=== PATIENT | female | born 1995 | race Caucasian/White ===

== ENCOUNTER 2020-05-13 12:29 | Emergency (ER) | payer MEDICAID, OTHER ==
[2020-05-13 12:43] VITALS: BP 139/89; PULSE 77
--- NOTE | 2020-05-13 13:27 | EDM.PDOC ---
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 She states this started about 2 hours ago after moving a bunch of office furniture. She states that she did not have any discomfort while moving the furniture but when she finished and sat down in a chair she developed back pain in the T6-T8 region. The pain radiates laterally on both sides of her body. She states that it is an achy type of pain. She denies any fever, chills, nausea, vomiting, or cough. Pain is slightly worse when taking a deep breath. She has not taken any over the counter pain medications or tried ice or heat. Patient states she has been to the chiropractor recently as her hips were out of place and she just feels like she needs to be adjusted. 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 She denies any issues with bowel or bladder. And neuro exam is unremarkable. Of note patient is 9 weeks and her OB doctor is in [place]. Onset: Today, Sudden Treatments INTERIOR SYSTEMS CARPENTER: Reports: Other (see below) Other Treatments INTERIOR SYSTEMS CARPENTER: none Middle Back Pain Score (Numeric/FACES): 9 - Related Data Allergies Allergy/AdvReac Type Severity Reaction Status Date / Time dicyclomine HCl [From Bentyl] Allergy Hallucinati Verified 08/15/15 13:43 ons Home Meds: Home Meds Metoclopramide HCl [Reglan] 10 mg PO Q6H PRN 05/13/20 [History] Pantoprazole Sodium [Protonix] 40 mg PO DAILY 05/13/20 [History] Pnv No.95/Ferrous Fum/Folic AC [ Caplet] 1 tab PO DAILY 05/13/20 [History] Past Medical History Gastrointestinal History: Reports: Irritable Bowel Syndrome Psychiatric History: Reports: Anxiety, Depression - Past Surgical History GI Surgical History: Reports: Colonoscopy Social & Family History - Tobacco Use Tobacco Use Status *Q: Never Tobacco User - Caffeine Use Caffeine Use: Reports: None - Recreational Drug Use Recreational Drug Use: No - Living Situation & Occupation Living situation: Reports: Single, with Family Occupation: Employed ED ROS GENERAL - Review of Systems Review Of Systems: Comprehensive ROS is negative, except as noted in HPI. ED EXAM, UPPER BACK/NECK PAIN - Physical Exam Exam: See Below Exam Limited By: No Limitations General Appearance: Alert, WD/WN, No Apparent Distress Ears Exam: Normal External Exam, Hearing Grossly Normal Nose Exam: Normal Inspection, Normal Mucousa Throat/Mouth Exam: Normal Inspection, Normal Voice, No Airway Compromise Head Exam: Atraumatic, Normocephalic Neck Exam: Non-Tender, Full Range of Motion, Normal Alignment, Normal Inspection GI/Abdominal: Normal Bowel Sounds, Soft, Non-Tender (Female) Exam: Deferred Rectal (Female) Exam: Deferred Back Exam: Normal Inspection, Full Range of Motion, Paraspinal Tenderness. No: Vertebral Tenderness Extremities: Normal Inspection, Normal Range of Motion, Non-Tender, No Pedal Edema, Normal Capillary Refill Neurologic: No Motor/Sensory Deficits, Alert, Normal Mood/Affect, Oriented x 3 Psychiatric: Normal Affect, Normal Mood Skin Exam: Normal Color, Warm/Dry Lymphatic: No Adenopathy Course - Vital Signs Text/Narrative:: 25-year-old female presenting the emergency department with complaints of upper back pain that started after moving office furniture. Upon assessment patient does not have any spinal tenderness but does have paraspinal tenderness noted in the T6-T8 area. She denies any recent cough, fever, or chills. She denies any difficulty with bowel or bladder. Denies numbness and tingling to upper and lower extremities and has equal strength in all extremities. Has not taken any [id number] pain medications prior to arrival or tried using ice or heat for therapy. I do not want to do an x-ray on this patient as she is 9 weeks pr egnant. She will be discharged to home with recommendations she take Tylenol 650 mg every 4 hours as needed for the discomfort and use ice/heat for comfort. May also try chiropractor massage therapy. Last Recorded V/S: Last Vital Signs Temp 99.1 F 05/13/20 12:41 Pulse 77 05/13/20 12:41 Resp 20 05/13/20 12:41 BP 139/89 05/13/20 12:41 Pulse Ox 100 05/13/20 12:41 Departure - Departure Time of Disposition: 13:31 Disposition: Home, Self-Care 01 Condition: Good Clinical Impression: Muscle strain - Discharge Information Instructions: Muscle Strain, [id number] Referrals: Karime Hudson MD [Primary Care Provider] - Forms: ED Department Discharge Additional Instructions: You were seen in the emergency department today with complaints of pain to your mid back after moving office furniture. It is likely that you have muscle strain noted to your upper back as you do not have any numbness or tingling, you have equal strength to upper and lower extremities, and you have no issues with your bowel or bladder. No x-ray was performed due to the fact that you are 9 weeks . Recommend you go home and rest, take Tylenol 650 mg every 4 hours as needed for discomfort, use ice/heat for comfort and follow-up with massage therapy or health care aide. Should you notice numbness or tingling to your upper extremities or difficulty with your bowel or bladder do not hesitate to return to the emergency department. Sepsis Event Note (ED) - Evaluation Sepsis Screening Result: No Definite Risk - Focused Exam Vital Signs: Vital Signs Temp Pulse Resp BP Pulse Ox 05/13/20 12:41 99.1 F 77 20 139/89 100
== END 2020-05-13 13:20 | disposition home or self-care (01) ==
LOC: JD.ED 12:29
DX: O99.891 Other specified diseases and conditions complicating pregnancy (principal); S29.012A Strain of muscle and tendon of back wall of thorax, initial encounter; Z88.8 Allergy status to other drugs, medicaments and biological substances; Z79.899 Other long term (current) drug therapy; Z3A.09 9 weeks gestation of pregnancy; X50.9XXA Other and unspecified overexertion or strenuous movements or postures, initial encounter
CPT/HCPCS: 99282; 99283

== ENCOUNTER 2021-03-26 12:23 | Emergency (ER) | payer OTHER ==
[2021-03-26 12:37] VITALS: BP 131/58; PULSE 123
[2021-03-26] MEDS ORDERED: Sodium Chloride 0.9% 10 ML Syringe FLUSH PRN (13:13)
[2021-03-26] MEDS ORDERED: Ondansetron 4 MG/2 ML SDV IVPUSH ONE (13:13)
[2021-03-26] MEDS ORDERED: Sodium Chloride 0.9% 1,000 ML IV SCH (13:15)
[2021-03-26 13:32] LABS: CORONAVIRUS COVID-19 NAA NEGATIVE (NEGATIVE)
--- NOTE | 2021-03-26 13:44 | EDM.PDOC ---
ED HPI GENERAL MEDICAL PROBLEM - General Chief Complaint: Respiratory Problem Stated Complaint: VOMITING FEVER Time Seen by Provider: 03/26/21 13:20 - History of Present Illness INITIAL COMMENTS - FREE TEXT/NARRATIVE: 25-year-old female presents the emergency room with flulike symptoms. Sunday she just started feeling rough diffuse aches and pains and joint pain and not being herself. This morning is got worse with nausea vomiting. She has vomited half a dozen times now just bringing up bilious material. The nausea and vomiting started this morning. She does not seem to have any significant abdominal pain associated with this. Patient is treated for bipolar depression but is not have any problems with that at this time. Past medical history is otherwise unremarkable. 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 Denies: Fever, Night Sweats, Diaphoresis HEENT: Reports: Rhinitis Respiratory: Denies: Shortness of Breath, Cough, Sputum Cardiovascular: Reports: No Symptoms GI/Abdominal: Reports: Nausea, Vomiting. Denies: Abdominal Pain, Constipation, Diarrhea : Reports: No Symptoms Musculoskeletal: Reports: Other (Muscle and joints that are achy) Skin: Reports: No Symptoms Neurological: Reports: No Symptoms Psychiatric: Reports: No Symptoms ED EXAM, GENERAL - Physical Exam Exam: See Below Exam Limited By: No Limitations General Appearance: Alert, No Apparent Distress Eye Exam: Bilateral Eye: Normal Inspection Ears: Normal External Exam, Normal Canal, Other (Tympanic membrane on the right left tympanic membrane is bulging and erythematous) Nose: Normal Inspection, Normal Mucosa, No Blood, Other (Sinus percussion is nonsuggestive of an acute sinusitis) Throat/Mouth: Normal Inspection, Normal Lips, Normal Teeth, Normal Gums, Normal Oropharynx, Normal Voice, No Airway Compromise Head: Atraumatic, Normocephalic Neck: Normal Inspection, Supple, Non-Tender, Full Range of Motion. No: Lymphadenopathy (L), Lymphadenopathy (R) Respiratory/Chest: No Respiratory Distress, Lungs Clear, Normal Breath Sounds Cardiovascular: Regular Rate, Rhythm, No Edema, No Murmur GI/Abdominal: Normal Bowel Sounds, Soft, Non-Tender Course - Vital Signs Last Recorded V/S: Last Vital Signs Temp 36.9 C 03/26/21 12:37 Pulse 123 H 03/26/21 12:37 Resp 20 03/26/21 12:37 BP 131/58 L 03/26/21 12:37 Pulse Ox 99 03/26/21 12:37 - Orders/Labs/Meds Orders: Active Orders 24 hr Category Date Time Status Communication Order [RC] ASDIRECTED Care 03/26/21 13:14 Active Communication Order [RC] ASDIRECTED Care 03/26/21 13:14 Active Communication Order [RC] ASDIRECTED Care 03/26/21 13:14 Active Orthostatic Vital Signs [RC] ASDIRECTED Care 03/26/21 13:14 Active Peripheral IV Care [RC] . DIRECTED Care 03/26/21 13:14 Active Chest 1V Frontal [CR] Stat Exams 03/26/21 14:43 Taken CULTURE URINE [MREF] Stat Lab 03/26/21 12:40 Received Sodium Chloride 0.9% [Saline Flush] Med 03/26/21 13:13 Active 10 ml FLUSH ASDIRECTED PRN Peripheral IV Insertion Adult [OM.PC] Stat Oth 03/26/21 13:14 Ordered Medication Orders Sodium Chloride (Sodium Chloride 0.9% 10 Ml Syringe) 10 ml FLUSH ASDIRECTED PRN PRN Reason: Keep Vein Open Last Admin: 03/26/21 13:21 Dose: 10 ml Documented by: JOSE Labs: Laboratory Tests 03/26/21 03/26/21 03/26/21 Range/Units 12:40 12:42 12:42 WBC 12.45 H (3.98-10.04) K/mm3 RBC 5.37 H (3.98-5.22) M/mm3 Hgb 12.9 (11.2-15.7) gm/dl Hct 40.3 (34.1-44.9) % MCV 75.0 L D (79.4-94.8) fl MCH 24.0 L (25.6-32.2) pg MCHC 32.0 L (32.2-35.5) g/dl RDW Std Deviation 44.1 (36.4-46.3) fL Plt Count 342 (182-369) K/mm3 MPV 10.9 (9.4-12.3) fl Neut % (Auto) 87.1 H (34.0-71.1) % Lymph % (Auto) 6.8 L (19.3-51.7) % [place] % (Auto) 4.7 (4.7-12.5) % Eos % (Auto) 1.0 (0.7-5.8) Baso % (Auto) 0.2 (0.1-1.2) % Neut # (Auto) 10.85 H (1.56-6.13) K/mm3 Lymph # (Auto) 0.85 L (1.18-3.74) K/mm3 [place] # (Auto) 0.58 H (0.24-0.36) K/mm3 Eos # (Auto) 0.13 (0.04-0.36) K/mm3 Baso # (Auto) 0.02 (0.01-0.08) K/mm3 Sodium 134 L (136-145) mEq/L Potassium 3.4 L (3.5-5.1) mEq/L Chloride 97 L (98-107) mEq/L Carbon Dioxide 26 (21-32) mEq/L Anion Gap 14.4 (5-15) BUN 11 (7-18) mg/dL Creatinine 1.1 H (0.55-1.02) mg/dL Est Cr Clr Drug Dosing 66.34 mL/min Estimated GFR (MDRD) 60 (>60) mL/min BUN/Creatinine Ratio 10.0 L (14-18) Glucose 112 H (70-99) mg/dL Calcium 8.7 (8.5-10.1) mg/dL Magnesium 1.5 L (1.8-2.4) mg/dL Total Bilirubin 0.6 (0.2-1.0) mg/dL AST 30 (15-37) U/L ALT 68 H (14-59) U/L Alkaline Phosphatase 114 (46-116) U/L C-Reactive Protein 3.3 H* (<1.0) mg/dL Total Protein 8.1 (6.4-8.2) g/dl Albumin 3.7 (3.4-5.0) g/dl Globulin 4.4 gm/dL Albumin/Globulin Ratio 0.8 L (1-2) Lipase 90 (73-393) U/L HCG, Quant 1.0 mIU/mL Urine Color Yellow (Yellow) Urine Appearance Clear (Clear) Urine pH 5.5 (5.0-8.0) Ur Specific [place] 1.020 (1.005-1.030) Urine Protein Negative (Negative) Urine Glucose (UA) Negative (Negative) Urine Ketones Negative (Negative) Urine Occult Blood 1+ H (Negative) Urine Nitrite Negative (Negative) Urine Bilirubin Negative (Negative) Urine Urobilinogen 0.2 (0.2-1.0) Ur Leukocyte Esterase Trace H (Negative) U Hyaline Cast (Auto) 0-5 (0-5) /lpf Urine RBC 5-10 H (0-5) /hpf Urine WBC 5-10 H (0-5) /hpf Ur Squamous Epith Cells 0-5 (0-5) /hpf Urine Bacteria Moderate H (FEW) /hpf Urine Mucus Moderate H (FEW) /hpf Influenza Type A RNA (NEGATIVE) RSV RNA (INAAT) (NEGATIVE) Influenza Type B RNA (NEGATIVE) SARS-CoV-2 RNA ([place]) (NEGATIVE) 03/26/21 Range/Units 12:44 WBC (3.98-10.04) K/mm3 RBC (3.98-5.22) M/mm3 Hgb (11.2-15.7) gm/dl Hct (34.1-44.9) % MCV (79.4-94.8) fl MCH (25.6-32.2) pg MCHC (32.2-35.5) g/dl RDW Std Deviation (36.4-46.3) fL Plt Count (182-369) K/mm3 MPV (9.4-12.3) fl Neut % (Auto) (34.0-71.1) % Lymph % (Auto) (19.3-51.7) % [place] % (Auto) (4.7-12.5) % Eos % (Auto) (0.7-5.8) Baso % (Auto) (0.1-1.2) % Neut # (Auto) (1.56-6.13) K/mm3 Lymph # (Auto) (1.18-3.74) K/mm3 [place] # (Auto) (0.24-0.36) K/mm3 Eos # (Auto) (0.04-0.36) K/mm3 Baso # (Auto) (0.01-0.08) K/mm3 Sodium (136-145) mEq/L Potassium (3.5-5.1) mEq/L Chloride (98-107) mEq/L Carbon Dioxide (21-32) mEq/L Anion Gap (5-15) BUN (7-18) mg/dL Creatinine (0.55-1.02) mg/dL Est Cr Clr Drug Dosing mL/min Estimated GFR (MDRD) (>60) mL/min BUN/Creatinine Ratio (14-18) Glucose (70-99) mg/dL Calcium (8.5-10.1) mg/dL Magnesium (1.8-2.4) mg/dL Total Bilirubin (0.2-1.0) mg/dL AST (15-37) U/L ALT (14-59) U/L Alkaline Phosphatase (46-116) U/L C-Reactive Protein (<1.0) mg/dL Total Protein (6.4-8.2) g/dl Albumin (3.4-5.0) g/dl Globulin gm/dL Albumin/Globulin Ratio (1-2) Lipase (73-393) U/L HCG, Quant mIU/mL Urine Color (Yellow) Urine Appearance (Clear) Urine pH (5.0-8.0) Ur Specific [place] (1.005-1.030) Urine Protein (Negative) Urine Glucose (UA) (Negative) Urine Ketones (Negative) Urine Occult Blood (Negative) Urine Nitrite (Negative) Urine Bilirubin (Negative) Urine Urobilinogen (0.2-1.0) Ur Leukocyte Esterase (Negative) U Hyaline Cast (Auto) (0-5) /lpf Urine RBC (0-5) /hpf Urine WBC (0-5) /hpf Ur Squamous Epith Cells (0-5) /hpf Urine Bacteria (FEW) /hpf Urine Mucus (FEW) /hpf Influenza Type A RNA Negative (NEGATIVE) RSV RNA (INAAT) Negative (NEGATIVE) Influenza Type B RNA Negative (NEGATIVE) SARS-CoV-2 RNA ([place]) Negative (NEGATIVE) Meds: Medications Generic Name Dose Route Start Last Admin Trade Name Freq PRN Reason Stop Dose Admin Sodium Chloride 10 ml 03/26/21 13:13 03/26/21 13:21 Sodium Chloride 0.9% 10 Ml Syringe FLUSH 10 ml ASDIRECTED PRN Administration Keep Vein Open Discontinued Medications Generic Name Dose Route Start Last Admin Trade Name Freq PRN Reason Stop Dose Admin Sodium Chloride 1,000 mls @ 999 mls/hr 03/26/21 13:15 03/26/21 13:21 Normal Saline IV 03/26/21 14:14 999 mls/hr Q1H EDMAR Administration Ondansetron HCl 4 mg 03/26/21 13:13 03/26/21 13:21 Ondansetron 4 Mg/2 Ml Sdv IVPUSH 03/26/21 13:14 4 mg ONETIME ONE Administration Potassium Chloride 40 meq 03/26/21 17:05 Potassium Chloride 20 Meq Tab.Er PO 03/26/21 17:06 ONETIME ONE - Re-Assessments/Exams Free Text/Narrative Re-Assessment/Exam: 03/26/21 13:47 On exam she has a left otitis media labs still pending. 03/26/21 17:13 Labs reviewed she may have a urinary tract infection developing. Chest x-ray shows a right lower lobe infiltrate she is coughing up a lot of yellow sputum at this point and she has her otitis. I will start her on Cipro 500 twice daily for 10 days other options are out there but with her gastroenteritis try to be is easy on her stomach is possible. Her potassium was a little bit low we will give her 40 mEq before she leaves Departure - Departure Time of Disposition: 17:17 Disposition: Home, Self-Care 01 Clinical Impression: Left otitis media, Acute gastroenteritis, Urinary tract infection, Pneumonia - Discharge Information Prescriptions: Amoxicillin [Amoxil] 875 mg PO Q12HR #20 tab Referrals: Hawa Celaya, [facility] [Primary Care Provider] - Forms: ED Department Discharge Additional Instructions: Return to the emergency room with any questions problems or worsening symptoms. Clear liquid diet for the next 24 hours then slowly advance as tolerated. You been started on an antibiotic, Levaquin 500 mg take 1 daily for 7 days this is for your ear infection ear developing pneumonia and the urinary tract infection. This [place] [facility] to [facility] [employer] [facility]. You have also been started on Zofran and antinausea vomiting medication you take 1 every 6 hours for the next 24 hours and then every 6 hours as needed thereafter. Follow-up with your regular healthcare provider the middle of this next week for recheck. Sepsis Event Note (ED) - Focused Exam Vital Signs: Vital Signs Temp Pulse Resp BP Pulse Ox 03/26/21 12:37 36.9 C 123 H 20 131/58 L 99 - My Orders Last 24 Hours: My Active Orders 03/26/21 12:40 CULTURE URINE [MREF] Stat 03/26/21 13:13 Sodium Chloride 0.9% [Saline Flush] 10 ml FLUSH ASDIRECTED PRN 03/26/21 13:14 Communication Order [RC] ASDIRECTED Communication Order [RC] ASDIRECTED Communication Order [RC] ASDIRECTED Orthostatic Vital Signs [RC] ASDIRECTED Peripheral IV Care [RC] . DIRECTED Peripheral IV Insertion Adult [OM.PC] Stat 03/26/21 14:43 Chest 1V Frontal [CR] Stat - Assessment/Plan Last 24 Hours: My Active Orders 03/26/21 12:40 CULTURE URINE [MREF] Stat 03/26/21 13:13 Sodium Chloride 0.9% [Saline Flush] 10 ml FLUSH ASDIRECTED PRN 03/26/21 13:14 Communication Order [RC] ASDIRECTED Communication Order [RC] ASDIRECTED Communication Order [RC] ASDIRECTED Orthostatic Vital Signs [RC] ASDIRECTED Peripheral IV Care [RC] . DIRECTED Peripheral IV Insertion Adult [OM.PC] Stat 03/26/21 14:43 Chest 1V Frontal [CR] Stat
[2021-03-26] MEDS ORDERED: Potassium Chloride 20 MEQ Tab.ER PO ONE (17:05)
--- NOTE | 2021-03-27 08:04 | CR ---
Chest: Portable view of the chest was obtained. Comparison: Prior chest x-ray of 08/15/15. Heart size and mediastinum are within normal limits. Lungs are clear with no acute parenchymal change. Bony structures show nothing acute. Impression: 1. Nothing acute is seen on portable chest x-ray. Diagnostic code #1
== END 2021-03-26 17:41 | disposition home or self-care (01) ==
LOC: JD.ED 12:23
DX: K52.9 Noninfective gastroenteritis and colitis, unspecified (principal); J18.9 Pneumonia, unspecified organism; H66.92 Otitis media, unspecified, left ear; N39.0 Urinary tract infection, site not specified; Z88.8 Allergy status to other drugs, medicaments and biological substances; Z20.822 Contact with and (suspected) exposure to COVID-19
CPT/HCPCS: 0241U; 36415; 71045; 80053; 81001; 83690; 83735; 84702; 85025; 86140; 87086; 96374; 99284; J2405; J7030; 99285

== ENCOUNTER 2022-06-30 22:48 | Emergency (ER) | payer BC, OTHER ==
[2022-06-30 23:06] VITALS: BP 133/81; PULSE 90
[2022-06-30] MEDS ORDERED: Sucralfate 1 GM Tab PO ONE (23:25)
[2022-06-30] MEDS ORDERED: Famotidine 20 MG/2 ML SDV IVPUSH ONE (23:55)
[2022-07-01] MEDS ORDERED: Ondansetron 4 MG/2 ML SDV IVPUSH ONE (03:31)
== END 2022-07-01 04:07 | disposition home or self-care (01) ==
LOC: JD.ED 22:48
DX: R10.13 Epigastric pain (principal); Z88.8 Allergy status to other drugs, medicaments and biological substances
CPT/HCPCS: 76705; 96374; 96375; 99284; A9270; J2405; J3490